=== PATIENT | female | born 2000 | race Caucasian/White ===

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

== ENCOUNTER 2019-01-26 11:27 | Emergency (ER) | payer MEDICAID ==
[~2019-01-26] VITALS: Ht 157.5 cm; Wt 67.7 kg
[~2019-01-26 11:27] MED LIST changes: +CEFU500T50 PO
[2019-01-26 11:29] VITALS: BP 136/80
--- NOTE | 2019-01-26 12:09 | NUR ---
PT PROVIDED WITH ICE PACK
[2019-01-26] MEDS ORDERED: ACETAMINOPHEN 500 MG TABLET PO ONE (12:30)
[2019-01-26] MEDS ORDERED: ACETAMINOPHEN 500 MG TABLET ONE (12:32)
[2019-01-26] MEDS ORDERED: BACITRACIN ZINC OINT 500U/GM, 0.9 GM ONE (13:01)
--- NOTE | 2019-01-26 13:02 | NUR ---
Bacitracin to abrasions on face. Patient given discharge instructions and they have confirmed that they understand the instructions. Patient ambulatory with steady gait.
[2019-01-26] MEDS ORDERED: BACITRACIN OINT 500U/GM, 15 GM TP SCH (16:00)
== END 2019-01-26 13:04 | disposition home or self-care (01) ==
LOC: ED 11:49
DX: S00.83XA Contusion of other part of head, initial encounter (principal); S00.33XA Contusion of nose, initial encounter; R51 Headache; F17.200 Nicotine dependence, unspecified, uncomplicated; W01.0XXA Fall on same level from slipping, tripping and stumbling without subsequent striking against object, initial encounter; Y93.02 Activity, running; Y92.89 Other specified places as the place of occurrence of the external cause; Y99.8 Other external cause status
CPT/HCPCS: 70450; 70486; 99284

== ENCOUNTER 2019-02-20 15:06 | Emergency (ER) | payer MEDICAID ==
[~2019-02-20] VITALS: Ht 157.5 cm; Wt 66.4 kg
[2019-02-20 15:34] LABS: BASOPHILS # (AUTO) 0.06 x10^3/uL (0-0.3); BASOPHILS % (AUTO) 1 % (0-1); EOSINOPHILS # (AUTO) 0.03 x10^3/uL (0-0.8); EOSINOPHILS % (AUTO) 0 % (1-7); LYMPHOCYTES # (AUTO) 1.37 x10^3/uL (1-6.1); LYMPHOCYTES % (AUTO) 11 % (22-44); MD NO; MEAN CORPUSCULAR HEMOGLOBIN 33.2 pg (27.0-34.8); MEAN CORPUSCULAR HGB CONC 33.9 g/dL (32.4-35.8); MEAN CORPUSCULAR VOLUME 97.9 fL (80-100); MEAN PLATELET VOLUME 8.9 fL (7.4-10.4); MONOCYTES % (AUTO) 6 % (2-9); NEUTROPHILS # (AUTO) 10.57 x10^3/uL (1.8-8.0); NEUTROPHILS % (AUTO) 82 % (42-75); PLATELET COUNT 271 x10^3/uL (130-400); RED BLOOD COUNT 4.58 x10^6/uL (3.82-5.3); RED CELL DISTRIBUTION WIDTH 14.3 % (9.6-15.2)
[2019-02-20 15:40] LABS: ALANINE AMINOTRANSFERASE 16 U/L (12-78); ANION GAP 5 mmol/L (5-15); CALCIUM 9.3 mg/dL (8.5-10.1); CHLORIDE 113 mmol/L (98-107); CREATININE 0.96 mg/dL (0.55-1.02)
--- NOTE | 2019-02-20 15:44 | NUR ---
PANEL FITTER: PT TO ROOM FROM LOBBY
--- NOTE | 2019-02-20 15:48 | NUR ---
PT TO ED WITH VBX3D, WAS HERE 2D AGO FOR SAME, TOLD TO GO TO PCP AND IF CANNOT GET ESTABLISHED TO RETURN IF SXS STILL PRESENT, UNABLE TO GET INTO PCP.
[2019-02-20 15:58] LABS: ALKALINE PHOSPHATASE 97 U/L (45-117); TOTAL PROTEIN 7.3 g/dL (6.4-8.2)
--- NOTE | 2019-02-20 16:35 | NUR ---
PT TO US
--- NOTE | 2019-02-20 16:48 | NUR ---
PT BACK FROM US
--- NOTE | 2019-02-20 17:08 | NUR ---
PT RESTING IN RDUNKIRK WITH BF AT BEDSIDE, UP FOR RECHECK
--- NOTE | 2019-02-20 17:41 | NUR ---
López RIOS, at bedside to discuss ED findings and d/c information.
[2019-02-20 17:42] VITALS: BP 103/56
== END 2019-02-20 17:53 | disposition home or self-care (01) ==
LOC: ED 15:55
DX: O03.4 Incomplete spontaneous abortion without complication (principal)
CPT/HCPCS: 36415; 76801; 80053; 84702; 85025; 99284

== ENCOUNTER 2019-07-17 09:29 | Emergency (ER) | payer MEDICAID ==
[~2019-07-17] VITALS: Ht 154.9 cm; Wt 63.0 kg
[2019-07-17] MEDS ORDERED: ONDANSETRON ODT 4 MG ONE (09:56)
[2019-07-17] MEDS ORDERED: ONDANSETRON ODT 4 MG PO ONE (10:00)
--- NOTE | 2019-07-17 10:02 | NUR ---
PT TO ED WITH CP X2D "ON EACH SIDE", HAS HAD COUGH, LOWER ABD PAIN, NAUSEA, VOMITING AND DIARRHEA, "I'M THROWING UP FOAM", PT PLACED ON MONITOR AND GIVEN ZOFRAN. UA COLLECTED AND SENT TO LAB. CALL LIGHT WTIHIN REACH
[2019-07-17 10:25] LABS: ALANINE AMINOTRANSFERASE 17 U/L (12-78); ALBUMIN 4.4 g/dL (3.4-5.0); ANION GAP 5 mmol/L (5-15); CALCIUM 9.3 mg/dL (8.5-10.1); CHLORIDE 108 mmol/L (98-107); CREATININE 1.03 mg/dL (0.55-1.02)
[2019-07-17 10:30] LABS: ALKALINE PHOSPHATASE 73 U/L (45-117); BILIRUBIN,TOTAL 0.7 mg/dL (0.2-1.0); TOTAL PROTEIN 7.9 g/dL (6.4-8.2)
[2019-07-17 10:39] LABS: CULTURE INDICATED? YES; MICROSCOPIC INDICATED
[2019-07-17 10:48] LABS: BASOPHILS # (AUTO) 0.06 x10^3/uL (0-0.3); BASOPHILS % (AUTO) 1 % (0-1); EOSINOPHILS # (AUTO) 0.17 x10^3/uL (0-0.8); EOSINOPHILS % (AUTO) 3 % (1-7); LYMPHOCYTES # (AUTO) 1.83 x10^3/uL (1-6.1); LYMPHOCYTES % (AUTO) 31 % (22-44); MD NO; MEAN CORPUSCULAR HEMOGLOBIN 32.6 pg (27.0-34.8); MEAN CORPUSCULAR HGB CONC 33.2 g/dL (32.4-35.8); MEAN CORPUSCULAR VOLUME 98.1 fL (80-100); MEAN PLATELET VOLUME 9.7 fL (7.4-10.4); MONOCYTES # (AUTO) 0.42 x10^3/uL (0-1.4); MONOCYTES % (AUTO) 7 % (2-9); NEUTROPHILS # (AUTO) 3.48 x10^3/uL (1.8-8.0); NEUTROPHILS % (AUTO) 58 % (42-75); PLATELET COUNT 286 x10^3/uL (130-400); RED BLOOD COUNT 4.86 x10^6/uL (3.82-5.3); RED CELL DISTRIBUTION WIDTH 13.9 % (9.6-15.2)
[2019-07-17 11:34] VITALS: BP 104/68
--- NOTE | 2019-07-17 11:34 | NUR ---
TASK RN: Patient/Caregiver given discharge instructions and they have confirmed that they understand the instructions. Patient ambulatory with steady gait.
[2019-07-22] MEDS ORDERED: CEFD300C37 PO (18:28)
== END 2019-07-17 11:35 | disposition home or self-care (01) ==
LOC: ED 10:35
DX: K52.9 Noninfective gastroenteritis and colitis, unspecified (principal); N30.00 Acute cystitis without hematuria; R07.1 Chest pain on breathing; Z90.49 Acquired absence of other specified parts of digestive tract
CPT/HCPCS: 36415; 71045; 80053; 81001; 83690; 84443; 84703; 85025; 87086; 93005; 99284; Q0162

== ENCOUNTER 2019-12-11 04:24 | Emergency (ER) | payer MEDICAID ==
[~2019-12-11] VITALS: Ht 154.9 cm; Wt 57.8 kg
[~2019-12-11 04:24] MED LIST changes: +CEFD300C37 PO
[2019-12-11 04:26] VITALS: BP 126/83
--- NOTE | 2019-12-11 05:11 | NUR ---
PT TO US
[2019-12-11 05:53] LABS: BASOPHILS # (AUTO) 0.03 x10^3/uL (0-0.3); BASOPHILS % (AUTO) 0 % (0-1); EOSINOPHILS # (AUTO) 0.25 x10^3/uL (0-0.8); EOSINOPHILS % (AUTO) 3 % (1-7); LYMPHOCYTES # (AUTO) 2.65 x10^3/uL (1-6.1); LYMPHOCYTES % (AUTO) 27 % (22-44); MD NO; MEAN CORPUSCULAR HEMOGLOBIN 31.5 pg (27.0-34.8); MEAN CORPUSCULAR HGB CONC 33.9 g/dL (32.4-35.8); MONOCYTES % (AUTO) 7 % (2-9); NEUTROPHILS # (AUTO) 6.17 x10^3/uL (1.8-8.0); NEUTROPHILS % (AUTO) 63 % (42-75); PLATELET COUNT 277 x10^3/uL (130-400); RED BLOOD COUNT 4.41 x10^6/uL (3.82-5.3); RED CELL DISTRIBUTION WIDTH 13.3 % (9.6-15.2)
[2019-12-11 06:00] LABS: ALANINE AMINOTRANSFERASE 19 U/L (12-78); ALBUMIN 3.9 g/dL (3.4-5.0); ANION GAP 7 mmol/L (5-15); CALCIUM 8.9 mg/dL (8.5-10.1); CHLORIDE 111 mmol/L (98-107)
[2019-12-11 06:05] LABS: ALKALINE PHOSPHATASE 54 U/L (45-117); BILIRUBIN,TOTAL 0.9 mg/dL (0.2-1.0); TOTAL PROTEIN 7.2 g/dL (6.4-8.2)
[2019-12-11 06:07] LABS: MICROSCOPIC NOT IND
[2019-12-11 06:10] LABS: CULTURE INDICATED? NO
--- NOTE | 2019-12-11 06:11 | NUR ---
PT BACK FROM US. URINE SAMPLE PROVIDED BY PT, SENT TO LAB.
--- NOTE | 2019-12-11 07:26 | NUR ---
Patient given discharge instructions and they have confirmed that they understand the instructions. Patient ambulatory with steady gait.
== END 2019-12-11 07:27 | disposition home or self-care (01) ==
LOC: ED 05:06
DX: O26.891 Other specified pregnancy related conditions, first trimester (principal); R10.30 Lower abdominal pain, unspecified; R19.7 Diarrhea, unspecified; R11.0 Nausea; R63.0 Anorexia; Z3A.01 Less than 8 weeks gestation of pregnancy
CPT/HCPCS: 36415; 76830; 80053; 81003; 83690; 84702; 84703; 85025; 99284